=== PATIENT | male | born 1950 | race Caucasian/White ===

== ENCOUNTER 2023-05-29 20:50 | Inpatient (IN) | payer OTHER ==
[~2023-05-29] VITALS: Ht 177.8 cm; Wt 92.5 kg
[2023-05-29 20:50] VITALS: PULSE 78; RESP 16; TEMP 97.6; O2SAT 97
[2023-05-29 21:53] LABS: AMPHETAMINE, URINE NEGATIVE ng/ml (NEG <=1000); BARBITURATE, URINE NEGATIVE ng/ml (NEG <=200); BENZODIAZEPINE, URINE NEGATIVE ng/mL (NEG <=200)
[2023-05-29 21:54] LABS: BASOPHILS % (AUTO) 0.6 % (0.0-2.0); EOSINOPHILS # (AUTO) 0.1 K/uL (0-0.4); HEMATOCRIT 47.1 % (36-52); HEMOGLOBIN 15.9 g/dL (12.0-18.0); LYMPHOCYTES # (AUTO) 2.6 K/uL (2.0-11.5); LYMPHOCYTES % (AUTO) 33.9 % (20.5-51.1); MEAN CORPUSCULAR HEMOGLOBIN 31 pg (27-31); MEAN CORPUSCULAR HGB CONC 34 g/dL (33-37); MEAN CORPUSCULAR VOLUME 90.2 fL (80-94); MONOCYTES # (AUTO) 0.2 K/uL (0.8-1.0); MONOCYTES % (AUTO) 3.3 % (1.7-9.3); NEUTROPHILS # (AUTO) 4.6 K/uL (1.8-7.7); NEUTROPHILS % (AUTO) 60.2 % (42.2-75.2); PLATELET COUNT (AUTO) 223 K/uL (140-450); RED BLOOD CELL COUNT(AUTO) 5.22 MIL/uL (4.20-6.10); RED CELL DISTRIBUTION WIDTH 13.1 % (11.6-13.7); WHITE BLOOD COUNT (AUTO) 7.6 K/uL (4.8-10.8)
[2023-05-29 21:54] LABS: CANNABINOID, URINE NEGATIVE ng/mL (NEG <=50); COCAINE, URINE NEGATIVE ng/mL (NEG <=300); OPIATE, URINE POSITIVE ng/mL (NEG <=2000); PHENCYCLIDINE SCREEN,URINE NEGATIVE ng/mL (NEG <=25)
[2023-05-29 22:08] LABS: ALANINE AMINOTRANSFERASE 61 U/L (12-78); ALBUMIN 3.8 g/dL (3.4-5.0); ALKALINE PHOSPHATASE 90 U/L (50-136); ANION GAP 20.3 (8-16); ASPARTATE AMINOTRANSFERASE 34 U/L (15-37); CALCIUM 9.2 mg/dL (8.5-10.1); CARBON DIOXIDE 18.5 mmol/L (21-32); CHLORIDE 101 mmol/L (98-107); CREATININE 1.1 mg/dL (0.6-1.3); GLUCOSE 263 mg/dL (74-106); LIPASE 18 U/L (16-77); POTASSIUM 3.8 mmol/L (3.5-5.1); SODIUM SERUM 136 mmol/L (136-145); TOTAL BILIRUBIN 0.6 mg/dL (0.0-1.0); TOTAL PROTEIN, SERUM 7.1 g/dL (6.4-8.2); UREA NITROGEN, BLOOD 18 mg/dL (7-18)
[2023-05-29] MEDS ORDERED: DOCUSATE SODIUM 100 MG GELCAP PO PRN (23:30)
[2023-05-29] MEDS ORDERED: ZOLPIDEM 5 MG TAB PO PRN (23:30)
[2023-05-29] MEDS ORDERED: ONDANSETRON 4 MG/2 ML VIAL IM/IVP PRN (23:30)
[2023-05-29] MEDS ORDERED: DEXTROSE 50% 50 ML SYR IVP PRN (23:30)
[2023-05-29] MEDS ORDERED: NACL 0.9% 1,000 ML IV SCH (23:30)
[2023-05-29] MEDS ORDERED: guaiFENesin DM 200/20 MG-10 ML 10 ML UDC PO PRN (23:30)
[2023-05-29] MEDS ORDERED: POTASSIUM CHLORIDE 10 MEQ TABER PO PRN (23:30)
[2023-05-29] MEDS ORDERED: ACETAMINOPHEN 325 MG TAB PO PRN (23:30)
[2023-05-29] MEDS ORDERED: HYDROcodone/APAP 7.5/325 MG 1 TAB PO PRN (23:30)
[2023-05-30 02:52] VITALS: O2SAT 96
[2023-05-30 05:14] VITALS: O2SAT 98
[2023-05-30] MEDS ORDERED: hydrALAZINE 20 MG/ML VIAL IVP PRN ×2 (07:05→07:26)
[2023-05-30 08:25] LABS: BASOPHILS % (AUTO) 0.6 % (0.0-2.0); EOSINOPHILS # (AUTO) 0.1 K/uL (0-0.4); EOSINOPHILS % (AUTO) 1.4 % (0.0-4.0); HEMATOCRIT 47.5 % (36-52); HEMOGLOBIN 16.1 g/dL (12.0-18.0); LYMPHOCYTES # (AUTO) 1.7 K/uL (2.0-11.5); LYMPHOCYTES % (AUTO) 29.4 % (20.5-51.1); MEAN CORPUSCULAR HEMOGLOBIN 31 pg (27-31); MEAN CORPUSCULAR HGB CONC 34 g/dL (33-37); MEAN CORPUSCULAR VOLUME 90.3 fL (80-94); MONOCYTES # (AUTO) 0.2 K/uL (0.8-1.0); MONOCYTES % (AUTO) 3.8 % (1.7-9.3); NEUTROPHILS # (AUTO) 3.8 K/uL (1.8-7.7); NEUTROPHILS % (AUTO) 64.8 % (42.2-75.2); PLATELET COUNT (AUTO) 212 K/uL (140-450); RED BLOOD CELL COUNT(AUTO) 5.26 MIL/uL (4.20-6.10); RED CELL DISTRIBUTION WIDTH 13.1 % (11.6-13.7); WHITE BLOOD COUNT (AUTO) 5.9 K/uL (4.8-10.8)
[2023-05-30] MEDS: BLOOD GLUCOSE MONITORING 1 DEV DEV FS SCH ×4 (08:35→21:16)
[2023-05-30 09:16] LABS: ALANINE AMINOTRANSFERASE 56 U/L (12-78); ALBUMIN 3.8 g/dL (3.4-5.0); ALKALINE PHOSPHATASE 82 U/L (50-136); ANION GAP 15.2 (8-16); ASPARTATE AMINOTRANSFERASE 34 U/L (15-37); CALCIUM 9.3 mg/dL (8.5-10.1); CARBON DIOXIDE 25.7 mmol/L (21-32); CHLORIDE 104 mmol/L (98-107); CREATININE 0.8 mg/dL (0.6-1.3); GLUCOSE 151 mg/dL (74-106); POTASSIUM 4.9 mmol/L (3.5-5.1); SODIUM SERUM 140 mmol/L (136-145); TOTAL BILIRUBIN 0.9 mg/dL (0.0-1.0); TOTAL PROTEIN, SERUM 7.2 g/dL (6.4-8.2); UREA NITROGEN, BLOOD 16 mg/dL (7-18)
[2023-05-30 09:25] VITALS: PULSE 74; RESP 20; O2SAT 97
[2023-05-30] MEDS ORDERED: amLODIPine 5 MG TAB PO SCH (09:30)
[2023-05-30] MEDS: PANTOPRAZOLE 40 MG TABEC PO SCH (09:37)
[2023-05-30] MEDS: lisinopriL 20 MG TAB PO SCH (09:55)
[2023-05-30] MEDS: carvediloL 12.5 MG TAB PO SCH ×2 (09:55→21:00)
[2023-05-30] MEDS: SPIRONOLACTONE 25 MG TAB PO SCH (09:56)
[2023-05-30 12:00] VITALS: BP 148/78; PULSE 74; RESP 20; TEMP 98.2; O2SAT 97
[2023-05-30 16:00] VITALS: BP 125/80; PULSE 55; PULSE 70; RESP 18; TEMP 98.2; O2SAT 99
[2023-05-30 20:00] VITALS: BP 150/79; PULSE 55; PULSE 63; RESP 16; RESP 18; TEMP 97.5; O2SAT 99
[2023-05-30] MEDS ORDERED: ATORVASTATIN 20 MG TAB PO SCH (21:00)
[2023-05-30] MEDS: INSULIN LISPRO SLIDING SCALE 100 UNITS/ML VIAL SUBQ PRN (21:18)
[2023-05-31] VITALS: BP 162/78; PULSE 50; PULSE 54; PULSE 75; RESP 15; TEMP 97.1; O2SAT 98
[2023-05-31 04:00] VITALS: BP 169/89; PULSE 62; PULSE 65; RESP 15; TEMP 97; O2SAT 98
[2023-05-31] MEDS: BLOOD GLUCOSE MONITORING 1 DEV DEV FS SCH ×2 (07:03→12:04)
[2023-05-31] MEDS: INSULIN LISPRO SLIDING SCALE 100 UNITS/ML VIAL SUBQ PRN ×2 (07:05→12:06)
[2023-05-31 08:00] VITALS: BP 185/76; PULSE 57; RESP 17; RESP 19; TEMP 97.8; O2SAT 100
[2023-05-31] MEDS ORDERED: amLODIPine 5 MG TAB PO SCH (09:00)
[2023-05-31] MEDS ORDERED: ECOTRIN 81 MG TABEC PO SCH (09:00)
[2023-05-31] MEDS ORDERED: carvediloL 6.25 MG TAB PO SCH (09:00)
[2023-05-31] MEDS: PANTOPRAZOLE 40 MG TABEC PO SCH (10:13)
[2023-05-31] MEDS: lisinopriL 20 MG TAB PO SCH (10:13)
[2023-05-31] MEDS: SPIRONOLACTONE 25 MG TAB PO SCH (10:14)
[2023-05-31] MEDS ORDERED: SPIR25TA PO (11:11)
[2023-05-31] MEDS ORDERED: ASPI-1856 PO (11:11)
[2023-05-31] MEDS ORDERED: AMLO-3 PO (11:11)
[2023-05-31] MEDS ORDERED: LISI20TA29 PO (11:11)
[2023-05-31] MEDS ORDERED: CARV6.252 PO (11:11)
[2023-05-31] MEDS ORDERED: ATOR20TA40 PO (11:11)
[2023-05-31 12:00] VITALS: BP 137/80; PULSE 61; RESP 19; TEMP 97.4; O2SAT 97
[2023-05-31 13:33] VITALS: BP 137/80; PULSE 61; RESP 19; TEMP 97.4
== END 2023-05-31 15:00 | disposition home or self-care (01) | DRG 305 ==
LOC: MED 20:50 → MTU 23:30
PROVIDERS: ADMIT Student in an Organized Health Care Education/Training Program; ATTEND Student in an Organized Health Care Education/Training Program
DX: I16.0 Hypertensive urgency (principal); F10.129 Alcohol abuse with intoxication, unspecified; E11.9 Type 2 diabetes mellitus without complications; I25.10 Atherosclerotic heart disease of native coronary artery without angina pectoris; Y90.9 Presence of alcohol in blood, level not specified; I25.2 Old myocardial infarction; Z95.1 Presence of aortocoronary bypass graft
CPT/HCPCS: 36415; 70450; 80053; 80305; 82948; 83690; 84484; 85025; 87081; 93005; 96374; 99285; G0482; J0360; J1815